=== PATIENT | female | born 1965 | race Caucasian/White ===

== ENCOUNTER 2018-05-26 09:45 | Inpatient (IN) | payer MEDICAID ==
[2018-05-26] MEDS ORDERED: SODIUM CHLORIDE 0.9% 1,000 ML IV ONE (10:14)
[2018-05-26 10:28] LABS: BILIRUBIN,URINE NEGATIVE (NEGATIVE); GLUCOSE, URINE (UA) NEGATIVE (NEGATIVE); KETONES,URINE (UA) NEGATIVE (NEGATIVE); LEUKOCYTE ESTERASE, URINE NEGATIVE (NEGATIVE); NITRITE,URINE NEGATIVE (NEGATIVE); OCCULT BLOOD,URINE NEGATIVE (NEGATIVE); PH,URINE 7.5 PH (5.0-7.5); PROTEIN,URINE NEGATIVE (NEGATIVE); UROBILINOGEN,URINE 0.2 (NORMAL) E.U./dL (NORMAL)
[2018-05-26 10:28] LABS: BASOPHILS # (AUTO) 0.1 10^3/uL (0.0-0.1); BASOPHILS % (AUTO) 0.4 %; EOSINOPHILS % (AUTO) 0.1 %; HGB - HEMOGLOBIN 14.3 g/dL (12.0-16.0); LYMPHOCYTES # (AUTO) 1.7 10^3/uL (1.5-3.5); LYMPHOCYTES % (AUTO) 10.1 %; MEAN CORPUSCULAR HEMOGLOBIN 31.3 pg (27.0-31.0); MEAN CORPUSCULAR HGB CONC 33.7 g/dL (32.0-36.0); MEAN CORPUSCULAR VOLUME 92.8 fL (81.0-99.0); MEAN PLATELET VOLUME 8.1 fL (7.9-10.8); MONOCYTES # (AUTO) 0.9 10^3/uL (0.0-1.0); MONOCYTES % (AUTO) 5.7 %; NEUTROPHILS # (AUTO) 13.8 10^3/uL (1.5-6.6); NEUTROPHILS % (AUTO) 83.7 %; PLT - PLATELET COUNT 309 10^3/uL (130-450); RED BLOOD COUNT 4.56 10^6/uL (4.20-5.40); RED CELL DISTRIBUTION WIDTH 13.7 % (12.0-15.0); WHITE BLOOD COUNT 16.5 x10^3/uL (4.8-10.8)
[2018-05-26 10:30] LABS: CLARITY,URINE SL. CLOUDY (CLEAR)
[2018-05-26] MEDS ORDERED: ONDANSETRON 4 MG/2 ML VIAL IVP STA ×2 (10:31→11:54)
[2018-05-26] MEDS ORDERED: MORPHINE 2 MG/ML SYRINGE IVP STA ×3 (10:31→15:29)
--- NOTE | 2018-05-26 10:34 | ED Physician Documentation ---
History of Present Illness - Stated complaint Stated Complaint: PX RT SIDE - Chief complaint Chief Complaint: Abd Pain - Additonal information Additional information: hx from pt 53 f healthy s/p appy ate chicken salad last night awoke this AM with severe ruq pain rad to chest abd and back sweats NVD (no blood) Review of Systems Constitutional: denies: Fever Cardiac: reports: Chest pain / pressure (rad from abd) Respiratory: denies: Dyspnea GI: reports: Abdominal Pain, Nausea, Vomiting, Diarrhea Musculoskeletal: reports: Back pain (rad from abd) Immunocompromised: denies: Immunocompromised PD PAST MEDICAL HISTORY - Present Medications Home Medications: Ambulatory Orders Medication Instructions Recorded Confirmed Buspirone HCl 05/26/18 Methylphenidate HCl [Concerta] 05/26/18 Potassium Chloride [K-Dur] 05/26/18 Sertraline [Zoloft] 05/26/18 Topiramate [Topiramate ER] 05/26/18 hydroCHLOROthiazide 05/26/18 [Hydrochlorothiazide] tiZANidine [Zanaflex] 05/26/18 - Allergies Allergies/Adverse Reactions: Allergies Allergy/AdvReac Type Severity Reaction Status Date / Time ciprofloxacin [From Cipro] AdvReac Rash Verified 05/26/18 10:03 PD ED PE NORMAL - Vitals Vital signs reviewed: Yes - Cardiac Cardiac: RRR - Respiratory Respiratory: No respiratory distress, Clear bilaterally - Abdomen Abdomen: Soft, Other (severe TTP RUQ with guarding and rebound, no pulsatile mass appreciated) - Back Back: No CVA TTP - Derm Derm: Other (diaphoretic) - Neuro Neuro: Alert and oriented X 3 Results - Vitals Vitals: Vital Signs - 24 hr 05/26/18 05/26/18 09:59 11:16 Temperature 36.8 C 36.6 C Heart Rate 65 67 Respiratory 20 16 Rate Blood Pressure 128/83 H 127/80 O2 Saturation 98 100 Oxygen O2 Source Room air - Labs Labs: Laboratory Tests 05/26/18 05/26/18 05/26/18 10:00 10:21 10:35 WBC 16.5 H RBC 4.56 Hgb 14.3 Hct 42.4 MCV 92.8 MCH 31.3 H MCHC 33.7 RDW 13.7 Plt Count 309 MPV 8.1 Neut # (Auto) 13.8 H Lymph # (Auto) 1.7 [place] # (Auto) 0.9 Eos # (Auto) 0.0 Baso # (Auto) 0.1 Absolute Nucleated RBC 0.00 Nucleated RBC % 0.0 Sodium 137 Potassium 3.7 Chloride 105 Carbon Dioxide 21 Anion Gap 11.0 BUN 23 H Creatinine 0.9 Estimated GFR (MDRD) 66 L Glucose 178 H Calcium 9.3 Total Bilirubin 1.4 H AST 283 H ALT 83 H Alkaline Phosphatase 75 Troponin I Total Protein 7.7 Albumin 4.2 Globulin 3.5 Albumin/Globulin Ratio 1.2 Lipase 46 Serum HCG, Qual Urine Color YELLOW Urine Clarity SL. CLOUDY Urine pH 7.5 Ur Specific Pinch 1.010 Urine Protein NEGATIVE Urine Glucose (UA) NEGATIVE Urine Ketones NEGATIVE Urine Occult Blood NEGATIVE Urine Nitrite NEGATIVE Urine Bilirubin NEGATIVE Urine Urobilinogen 0.2 (NORMAL) Ur Leukocyte Esterase NEGATIVE Urine RBC 0-5 Urine WBC 0-3 Ur Squamous Epith Cells NONE SEEN Amorphous Sediment Moderate Urine Bacteria Moderate H Ur Microscopic Review INDICATED Urine Culture Comments INDICATED 05/26/18 05/26/18 10:35 10:35 WBC RBC Hgb Hct MCV MCH MCHC RDW Plt Count MPV Neut # (Auto) Lymph # (Auto) [place] # (Auto) Eos # (Auto) Baso # (Auto) Absolute Nucleated RBC Nucleated RBC % Sodium Potassium Chloride Carbon Dioxide Anion Gap BUN Creatinine Estimated GFR (MDRD) Glucose Calcium Total Bilirubin AST ALT Alkaline Phosphatase Troponin I < 0.04 Total Protein Albumin Globulin Albumin/Globulin Ratio Lipase Serum HCG, Qual NEGATIVE Urine Color Urine Clarity Urine pH Ur Specific Pinch Urine Protein Urine Glucose (UA) Urine Ketones Urine Occult Blood Urine Nitrite Urine Bilirubin Urine Urobilinogen Ur Leukocyte Esterase Urine RBC Urine WBC Ur Squamous Epith Cells Amorphous Sediment Urine Bacteria Ur Microscopic Review Urine Culture Comments PD MEDICAL DECISION MAKING - ED course ED course: sono = gallstones and + sono murphys, elev WBC and bili gave unasyn spoke to surgeon at 1340 - Sepsis Event Vital Signs: Vital Signs - 24 hr 05/26/18 05/26/18 09:59 11:16 Temperature 36.8 C 36.6 C Heart Rate 65 67 Respiratory 20 16 Rate Blood Pressure 128/83 H 127/80 O2 Saturation 98 100 Oxygen O2 Source Room air Departure - Departure Disposition: [facility] DC/Xfer Clinical Impression: Cholecystitis
[2018-05-26 10:40] LABS: RBC,URINE 0-5 /HPF (0-5); SQUAMOUS EPITHELIAL CELL,UR NONE SEEN (<= Few)
[2018-05-26 10:41] LABS: AMORPHOUS SEDIMENT,UR Moderate /LPF; BACTERIA,URINE Moderate /HPF (None Seen)
[2018-05-26 11:04] LABS: ALBUMIN 4.2 g/dL (3.2-5.5); ALBUMIN/GLOBULIN RATIO 1.2 (1.0-2.2); BILIRUBIN,TOTAL 1.4 mg/dL (0.2-1.0); CALCIUM 9.3 mg/dL (8.5-10.3); CREATININE 0.9 mg/dL (0.4-1.0); TOTAL PROTEIN 7.7 g/dL (6.7-8.2)
[2018-05-26 11:15] LABS: HCG,QUALITATIVE BLOOD NEGATIVE
[2018-05-26] MEDS ORDERED: AMPICILLIN/SULBACTAM 3 GM in SODIUM CHLORIDE 0.9% MINIBAG 100 ML IV STA (12:51)
--- NOTE | 2018-05-26 13:04 | Ultrasound Report ---
Reason: ruq pain Procedure Date: 05/26/2018 Accession Number: [id number] / [id number] Procedure: US - Abdomen Limited CPT Code: FULL RESULT: EXAM: ABDOMEN ULTRASOUND LIMITED, RUQ EXAM DATE: 05/26/2018 12:44 PM. CLINICAL HISTORY: Right upper quadrant pain. Nausea and vomiting. COMPARISON: None. TECHNIQUE: Real-time scanning was performed with static images obtained. FINDINGS: Liver: Normal in size and echotexture. Liver measures 15.3 cm. Main portal vein flow: Hepatopetal. Gallbladder: Multiple small mobile gallstones are seen in the gallbladder. There is no gallbladder wall thickening or pericholecystic fluid. Sonographic Shepherd sign is positive. Biliary System: CBD measures 5 mm. No intrahepatic or extrahepatic ductal dilatation. Other: None. IMPRESSION: Cholelithiasis and positive sonographic Shepherd sign, however, no wall thickening or pericholecystic fluid to suggest acute cholecystitis. If there is high suspicion for underlying cholecystitis further evaluation with contrast-enhanced CT or hepatobiliary scan could be helpful. RADIA
--- NOTE | 2018-05-26 16:05 | HISTORY & PHYSICAL EXAMINATION ---
Chief Complaint - Chief Complaint Chief Complaint: RUQ abdominal pain Abdominal Pain HPI - Admitted From Admitted from: ED - History Obtained From History obtained from: Patient Exam limitations: No limitations - History of Present Illness Severity at the worst: Severe Pain Quality: Sharp, Throbbing Context-Pain started w/: Eating Timing: Intermittent HPI Comment/Other: 53y/o woman presented to the ED with c/o severe RUQ abdominal pain that started this am after eating. She has had similar pain off and on in the past, but ignored it and it went away. It has never been as severe as today. Her WBC was elevated at 16.5 and RUQ u/s confirmed gallstones, although T bili is elevated at 1.4 no biliary dilation was seen on u/s. PMH/PSH - Past Medical History Cardiovascular: positive: Hypertension Neuro: positive: Migraines Psych: positive: Depression MRSA Hx?: No - Past Surgical History General: positive: Appendectomy (at age 11) Ortho: positive: Knee replacement /[employer]: positive: Hysterectomy Social & Family Hx - Living Situation Living Arrangement: At home (fully functional and independent) - Social History Does the pt smoke?: No Smoking Status: Never smoker Meds/Allgy - Home Medications Home Medications: Ambulatory Orders Medication Instructions Recorded Confirmed Buspirone HCl 30 mg PO BID 05/26/18 05/26/18 Cholestyramine/Aspartame 4 gm PO QID 05/26/18 05/26/18 [Cholestyramine Light Packet] Diclofenac Sodium 4 g TOP QID PRN 05/26/18 05/26/18 Estradiol [Estradiol] 2 mg PO DAILY 05/26/18 05/26/18 Methylphenidate HCl [Concerta] 36 mg PO DAILY 05/26/18 05/26/18 Metoclopramide [Reglan] 10 mg PO Q6H PRN 05/26/18 05/26/18 Nortriptyline HCl 10 - 20 mg PO QPM PRN 05/26/18 05/26/18 Pantoprazole Sodium 40 mg PO DAILY 05/26/18 05/26/18 Potassium Chloride [K-Dur] 20 meq PO DAILY 05/26/18 05/26/18 SUMAtriptan succinate [Sumatriptan 100 mg PO Q2H PRN MDD 200MG/24HRS 05/26/18 Succinate] Sertraline [Zoloft] 100 mg PO DAILY 05/26/18 05/26/18 Topiramate [Topiramate ER] 200 mg PO DAILY 05/26/18 05/26/18 hydroCHLOROthiazide 25 mg PO DAILY 05/26/18 05/26/18 [Hydrochlorothiazide] tiZANidine [Zanaflex] 4 mg PO Q8H 05/26/18 05/26/18 - Allergies Allergies/Adverse Reactions: Allergies Allergy/AdvReac Type Severity Reaction Status Date / Time ciprofloxacin [From Cipro] AdvReac Rash Verified 05/26/18 10:03 Review of Systems - Constitutional Constitutional: reports: Poor appetite - Gastrointestinal Gastrointestinal: reports: Abdominal pain (RUQ) - Neurological Neurological: reports: Headache - All Other Systems All Other Systems: reports: Reviewed and negative Exam - Vital Signs Reviewed Vital Signs: Yes - Physical Exam General Appearance: positive: No acute distress, Alert Eyes Bilateral: positive: EOMI, No scleral icterus Neck: positive: No JVD, Trachea midline Respiratory: positive: No respiratory distress, Breath sounds nml Cardiovascular: positive: Regular rate & rhythm Peripheral Pulses: positive: 2+ Abdomen: positive: Nml bowel sounds, No distention, Tenderness (RUQ; mod), Guarding (voluntary). negative: Rebound Skin: positive: Warm, Dry Extremities: positive: Full ROM, Nml appearance Neurologic/Psychiatric: positive: Oriented x3, Other (no focal deficits) Results - Lab Results Lab results reviewed: Yes Fish Bones: 05/26/18 10:21 05/26/18 10:35 Other Lab Results: T bili 1.4 - Diagnostic Imaging Results Diagnostic Imaging Results: positive: Final report reviewed (u/s shows gallstones, no GB wall thickening, no pericholecystitic fluid, no biliary dilation) Impression/Plan - Problem List Problem List: Acute cholecystitis: Will admit for IV antibiotics. Repeat bilirubin in am and if increasing, she may need MRCP/ERCP; if not then will proceed with lap sky.
[2018-05-26] MEDS: SODIUM CHLORIDE FLUSH 0.9% 10 ML SYRINGE IVP SCH (16:37)
[2018-05-26] MEDS: PIPERACILLIN/TAZOBACTAM 3.375 GM in SODIUM CHLORIDE 0.9% MINIBAG 100 ML IV SCH ×2 (16:37→20:37)
[2018-05-26] MEDS: MORPHINE 2 MG/ML SYRINGE IVP PRN ×3 (16:38→22:33)
[2018-05-26] MEDS: D5.45NS W/20 MEQ KCL 1,000 ML IV SCH (16:38)
[2018-05-26] MEDS: ACETAMINOPHEN 325 MG TABLET PO PRN (17:17)
[2018-05-26] MEDS: SODIUM CHLORIDE FLUSH 0.9% 10 ML SYRINGE IVP PRN ×3 (17:24→22:34)
[2018-05-26] MEDS: ONDANSETRON 4 MG/2 ML VIAL IVP PRN (17:24)
[2018-05-26] MEDS ORDERED: SUMAtriptan 25 MG TABLET PO ONE (18:34)
[2018-05-26] MEDS ORDERED: DICLOFENAC SODIUM 4 GM TOP PRN (20:18)
[2018-05-26] MEDS ORDERED: NORTRIPTYLINE 10 MG CAPSULE PO PRN (20:18)
[2018-05-26] MEDS: busPIRone 5 MG TABLET PO SCH (21:54)
[2018-05-27] MEDS: MORPHINE 2 MG/ML SYRINGE IVP PRN ×7 (00:33→16:45)
[2018-05-27] MEDS: SODIUM CHLORIDE FLUSH 0.9% 10 ML SYRINGE IVP PRN ×2 (00:33→02:34)
[2018-05-27] MEDS: SODIUM CHLORIDE FLUSH 0.9% 10 ML SYRINGE IVP SCH ×4 (00:33→18:22)
[2018-05-27] MEDS: ONDANSETRON 4 MG/2 ML VIAL IVP PRN ×3 (00:33→21:54)
[2018-05-27] MEDS: PIPERACILLIN/TAZOBACTAM 3.375 GM in SODIUM CHLORIDE 0.9% MINIBAG 100 ML IV SCH ×4 (02:39→20:52)
[2018-05-27] MEDS: D5.45NS W/20 MEQ KCL 1,000 ML IV SCH ×3 (04:16→16:46)
[2018-05-27 07:04] LABS: BASOPHILS # (AUTO) 0.1 10^3/uL (0.0-0.1); BASOPHILS % (AUTO) 0.6 %; EOSINOPHILS # (AUTO) 0.1 10^3/uL (0.0-0.7); EOSINOPHILS % (AUTO) 1.2 %; HGB - HEMOGLOBIN 13.2 g/dL (12.0-16.0); LYMPHOCYTES # (AUTO) 3.5 10^3/uL (1.5-3.5); LYMPHOCYTES % (AUTO) 34.4 %; MEAN CORPUSCULAR HEMOGLOBIN 31.6 pg (27.0-31.0); MEAN CORPUSCULAR HGB CONC 33.2 g/dL (32.0-36.0); MEAN CORPUSCULAR VOLUME 95.4 fL (81.0-99.0); MEAN PLATELET VOLUME 7.9 fL (7.9-10.8); MONOCYTES # (AUTO) 0.8 10^3/uL (0.0-1.0); MONOCYTES % (AUTO) 7.8 %; NEUTROPHILS # (AUTO) 5.8 10^3/uL (1.5-6.6); PLT - PLATELET COUNT 270 10^3/uL (130-450); RED BLOOD COUNT 4.17 10^6/uL (4.20-5.40); RED CELL DISTRIBUTION WIDTH 14.1 % (12.0-15.0); WHITE BLOOD COUNT 10.3 x10^3/uL (4.8-10.8)
[2018-05-27 07:19] LABS: ALBUMIN 3.4 g/dL (3.2-5.5); ALBUMIN/GLOBULIN RATIO 1.1 (1.0-2.2); BILIRUBIN,TOTAL 0.9 mg/dL (0.2-1.0); CALCIUM 8.2 mg/dL (8.5-10.3); CREATININE 0.9 mg/dL (0.4-1.0); TOTAL PROTEIN 6.6 g/dL (6.7-8.2)
--- NOTE | 2018-05-27 08:29 | ANESTHESIA ---
Pre-Anesthesia VS, & Labs - Diagnosis Cholelithiasis - Procedure Lap cholecystectomy Vital Signs: Temp Pulse Resp BP Pulse Ox 37.1 C 65 18 112/76 95 05/27/18 07:31 05/27/18 07:31 05/27/18 07:31 05/27/18 07:31 05/27/18 07:31 Height 5 ft 7 in Weight (kg) 77.5 kg Body Mass Index 26.7 - NPO >8 hours - Is Patient ?: No - Lab Results Fish Bones: 05/27/18 06:50 05/27/18 06:50 Home Medications and Allergies Home Medications: Ambulatory Orders Medication Instructions Recorded Confirmed Buspirone HCl 30 mg PO BID 05/26/18 05/26/18 Cholestyramine/Aspartame 4 gm PO QID 05/26/18 05/26/18 [Cholestyramine Light Packet] Diclofenac Sodium 4 g TOP QID PRN 05/26/18 05/26/18 Estradiol [Estradiol] 2 mg PO DAILY 05/26/18 05/26/18 Methylphenidate HCl [Concerta] 36 mg PO DAILY 05/26/18 05/26/18 Metoclopramide [Reglan] 10 mg PO Q6H PRN 05/26/18 05/26/18 Nortriptyline HCl 10 - 20 mg PO QPM PRN 05/26/18 05/26/18 Pantoprazole Sodium 40 mg PO DAILY 05/26/18 05/26/18 Potassium Chloride [K-Dur] 20 meq PO DAILY 05/26/18 05/26/18 SUMAtriptan succinate [Sumatriptan 100 mg PO Q2H PRN MDD 200MG/24HRS 05/26/18 Succinate] Sertraline [Zoloft] 100 mg PO DAILY 05/26/18 05/26/18 Topiramate [Topiramate ER] 200 mg PO DAILY 05/26/18 05/26/18 hydroCHLOROthiazide 25 mg PO DAILY 05/26/18 05/26/18 [Hydrochlorothiazide] tiZANidine [Zanaflex] 4 mg PO Q8H 05/26/18 05/26/18 Allergies/Adverse Reactions: Allergies Allergy/AdvReac Type Severity Reaction Status Date / Time ciprofloxacin [From Cipro] AdvReac Rash Verified 08/28/18 10:03 Anes History & Medical History - Anesthetic History Anesthesia Complications: reports: No previous complications Family history of Anesthesia Complications: Denies Family history of Malignant Hyperthermia: Denies - Medical History Cardiovascular: reports: Hypertension Pulmonary: reports: None Gastrointestinal: reports: GERD Urinary: reports: None Neuro: reports: Migraines, Other (anxiety) Musculoskeletal: reports: Osteoarthritis, Chronic back pain Endocrine/Autoimmune: reports: None Blood Disorders: reports: None Skin: reports: None Smoking Status: Never smoker Psychosocial: reports: Anxiety - Surgical History General: Appendectomy (at age 11) Urologic: Bladder surgery Gynecologic: Hysterectomy Orthopedic: Arthroscopic surgery Dermatologic: Skin cancer surgery Exam General: Alert Dental: WNL Mouth Openin Fingerbreadth Neck Mobility: Normal Mallampati classification: II Thyromental Distance: greater than 6 cm Respiratory: Lungs clear Cardiovascular: Regular rate, No murmurs Mental/Cognitive Status: Alert/Oriented X3 Cognitive Status: Within normal limits Plan Anesthesia Type: General Consent for Procedure(s) Verified and Reviewed: Yes Code Status: Attempt Resuscitation ASA classification: 2-Mild systemic disease Is this case an emergency?: No
[2018-05-27] MEDS ORDERED: hydroCHLOROthiazide 25 MG TABLET PO SCH ×2 (09:00)
[2018-05-27] MEDS ORDERED: POTASSIUM CHLORIDE 20 MEQ TABLET PO SCH (09:00)
[2018-05-27] MEDS ORDERED: PANTOPRAZOLE 40 MG TABLET PO SCH (09:00)
[2018-05-27] MEDS: PANTOPRAZOLE 40 MG TABLET PO SCH (09:09)
[2018-05-27] MEDS: TOPIRAMATE 200 MG PO SCH (09:10)
[2018-05-27] MEDS: ESTRADIOL 1 MG TABLET PO SCH (09:10)
[2018-05-27] MEDS: busPIRone 5 MG TABLET PO SCH ×2 (09:10→20:45)
[2018-05-27] MEDS: PATIENT OWN CONTROLLED 1 EACH PO SCH (09:10)
[2018-05-27] MEDS ORDERED: BUPIVACAINE 0.5%-EPI 1:200000 PF 30 ML VIAL ONE (13:18)
[2018-05-27] MEDS ORDERED: LACTATED RINGERS 1,000 ML IV ONE ×2 (13:20→14:47)
[2018-05-27] MEDS ORDERED: BUPIVACAINE 0.5%-EPI 1:200000 PF 30 ML VIAL SUBQ ONE (13:51)
[2018-05-27] MEDS ORDERED: SODIUM CHLORIDE FLUSH 0.9% 10 ML SYRINGE IVP PRN (14:47)
[2018-05-27] MEDS ORDERED: LIDOCAINE-MPF 2% 5 ML VIAL IM ONE (14:51)
[2018-05-27] MEDS ORDERED: ONDANSETRON 4 MG/2 ML VIAL IVP ONE (14:51)
[2018-05-27] MEDS ORDERED: ROCURONIUM 50 MG/5 ML VIAL IVP ONE (14:51)
[2018-05-27] MEDS ORDERED: PROPOFOL 200 MG/20 ML VIAL IVP ONE (14:51)
[2018-05-27] MEDS ORDERED: KETOROLAC 30 MG/ML VIAL IVP ONE (14:51)
[2018-05-27] MEDS ORDERED: ONDANSETRON 4 MG/2 ML VIAL ONE (14:55)
--- NOTE | 2018-05-27 14:58 | OPERATIVE REPORT ---
Operative Report - General Admit Date: 05/26/18 Planned Procedure: lap sky Pre-Op Diagnosis: Acute cholecystitis Procedure Performed: Laparoscopic Cholecystectomy Post Op Diagnosis: same - Procedure Note Primary Surgeon: Briseyda Weir MD Anesthesia Provider: Dr. Alexander Anesthesia Technique: General ET tube Pathology: gallbladder Estimated Blood Loss (mL): 10 Complications: NONE - Other Other Information/Narrative: After informed consent was obtained, the pt was taken to the OR and placed in supine position. A time-out was done and the abdomen was prepped and draped in sterile fashion. 0.25% Marcaine with epi was injected into the infraumbilical skin and subQ tissues and an infraumbilical incision was made and carried down to the fascia with cautery and blunt dissection. The fascia was grasped between 2 faraz clamps, incised and the peritoneal cavity entered. A 0 Vicryl suture was placed on either side of the fascia. The Cole trocar was placed and secured with the Vicryl sutures. The abdomen was insufflated and a 5mm epigastric trocar along with 2 5mm RUQ trocars were placed under direct visualization after injection of local anesthetic. The gallbladder was quite large and dilated and was grasped and aspirated with the needle aspirator removing 80ml of bile so that it could be retracted over the liver. Once the liver was retracted, adhesions were noted from the omentum and bowel to the anterior gallbladder wall. These adhesions were carefully taken down. The neck of the gallbladder was then grasped and retracted. The cystic duct and cystic artery were then carefully dissected free until the critical view was obtained. The cystic duct and cystic artery were doubly clipped proximally and distally then transected with the scissors. The gallbladder was then dissected off the liver bed with electrocautery. It was placed in the endocatch bag and removed from the abdomen via the umbilical trocar site. There was some bile that leaked out of the initial aspiration needle hole, so the abdomen was copiously irrigated and suctioned with 2L of saline until the irrigant returned clear. The trocars were then removed under direct visualization. The fascia at the umbilical trocar site was closed with a [id number] 0 Vicryl suture. The skin at all the trocar sites was closed with a running 4-0 Vicryl suture. Dermabond was applied. All counts were correct at the end of the procedure. The pt tolerated the procedure well and was sent to the PACU in stable condition.
[2018-05-27] MEDS: fentaNYL 100 MCG/2 ML VIAL ONE ×4 (15:06→15:38)
[2018-05-27] MEDS ORDERED: SCOPOLAMINE PATCH TOP ONE (15:20)
[2018-05-27] MEDS ORDERED: HYDROmorphone 1 MG/ML CARPUJECT ONE (15:43)
[2018-05-27] MEDS ORDERED: METOCLOPRAMIDE 10 MG TABLET PO PRN (16:30)
[2018-05-27] MEDS ORDERED: SUMAtriptan 25 MG TABLET PO PRN (16:35)
[2018-05-27] MEDS: KETOROLAC 15 MG/ML VIAL IVP PRN (18:19)
[2018-05-27] MEDS: MORPHINE 2 MG/ML CARPUJECT IVP PRN ×2 (20:19→22:35)
[2018-05-27] MEDS: tiZANidine 4 MG TABLET PO SCH (20:45)
[2018-05-28] MEDS: KETOROLAC 15 MG/ML VIAL IVP PRN ×4 (00:21→19:44)
[2018-05-28] MEDS: tiZANidine 4 MG TABLET PO SCH ×4 (00:22→23:40)
[2018-05-28] MEDS: SODIUM CHLORIDE FLUSH 0.9% 10 ML SYRINGE IVP SCH ×6 (01:30→17:03)
[2018-05-28] MEDS: D5.45NS W/20 MEQ KCL 1,000 ML IV SCH (02:41)
[2018-05-28] MEDS: PIPERACILLIN/TAZOBACTAM 3.375 GM in SODIUM CHLORIDE 0.9% MINIBAG 100 ML IV SCH (02:44)
[2018-05-28] MEDS: PANTOPRAZOLE 40 MG TABLET PO SCH ×3 (05:58→20:51)
[2018-05-28 05:59] LABS: HGB - HEMOGLOBIN 10.9 g/dL (12.0-16.0); MEAN CORPUSCULAR HEMOGLOBIN 32.2 pg (27.0-31.0); MEAN CORPUSCULAR HGB CONC 33.9 g/dL (32.0-36.0); MEAN CORPUSCULAR VOLUME 94.9 fL (81.0-99.0); MEAN PLATELET VOLUME 7.8 fL (7.9-10.8); RED BLOOD COUNT 3.38 10^6/uL (4.20-5.40); WHITE BLOOD COUNT 10.6 x10^3/uL (4.8-10.8)
[2018-05-28 06:19] LABS: ALBUMIN 2.7 g/dL (3.2-5.5); CALCIUM 7.7 mg/dL (8.5-10.3); CREATININE 0.8 mg/dL (0.4-1.0); TOTAL PROTEIN 5.3 g/dL (6.7-8.2)
[2018-05-28] MEDS ORDERED: SODIUM CHLORIDE 0.9% 1,000 ML IV ONE ×2 (06:52→06:54)
[2018-05-28] MEDS ORDERED: hydroCHLOROthiazide 25 MG TABLET PO SCH (07:23)
[2018-05-28] MEDS: TOPIRAMATE 200 MG PO SCH (08:49)
[2018-05-28] MEDS: POTASSIUM CHLORIDE 20 MEQ TABLET PO SCH (08:49)
[2018-05-28] MEDS: PATIENT OWN CONTROLLED 1 EACH PO SCH (08:49)
[2018-05-28] MEDS: SERTRALINE 50 MG TABLET PO SCH (08:50)
[2018-05-28] MEDS: busPIRone 5 MG TABLET PO SCH ×2 (08:50→20:51)
[2018-05-28] MEDS: ESTRADIOL 1 MG TABLET PO SCH (08:54)
--- NOTE | 2018-05-28 10:36 | PROVIDER PROGRESS NOTE ---
Subjective - General Admit Date: 05/27/18 Procedure Date: 05/27/18 Post Op Days: 1 Procedure Performed: lap sky - Review of Systems Wound/Incisions: positive: Healing well, No drainage General: positive: Weakness Cardiovascular: positive: Lightheadedness Gastrointestinal: positive: Abdominal pain (incisional) All Other Systems: positive: Reviewed and negative Objective - Patient Data Reviewed Vital Signs: Yes Vital Signs: Vital Signs x48h Temp Pulse Resp BP Pulse Ox 05/28/18 09:45 59 L 101/69 05/28/18 08:47 69 92/56 L 05/28/18 08:00 37.1 C 59 L 18 91/59 L 97 05/28/18 06:36 57 L 89/55 L 05/28/18 06:06 36.8 C 50 L 16 87/56 L 96 Intake & Output: Intake and Output Totals x24h 05/26/18 05/27/18 05/28/18 23:59 23:59 23:59 Intake Total 200 2696.667 Balance 200 2696.667 - Lab Results Lab Results: 05/28/18 05:45 05/28/18 05:45 Other Lab Results: Lab Results x24hrs 05/28/18 05/28/18 Range/Units 05:45 05:45 WBC 10.6 (4.8-10.8) x10^3/uL RBC 3.38 L (4.20-5.40) 10^6/uL Hgb 10.9 L (12.0-16.0) g/dL Hct 32.1 L (37.0-47.0) % MCV 94.9 (81.0-99.0) fL MCH 32.2 H (27.0-31.0) pg MCHC 33.9 (32.0-36.0) g/dL RDW 14.0 (12.0-15.0) % Plt Count 208 (130-450) 10^3/uL MPV 7.8 L (7.9-10.8) fL Sodium 138 (135-145) mmol/L Potassium 3.6 (3.5-5.0) mmol/L Chloride 110 (101-111) mmol/L Carbon Dioxide 24 (21-32) mmol/L Anion Gap 4.0 L (6-13) BUN 7 (6-20) mg/dL Creatinine 0.8 (0.4-1.0) mg/dL Estimated GFR (MDRD) 75 L (>89) Glucose 115 H (70-100) mg/dL Calcium 7.7 L (8.5-10.3) mg/dL Total Bilirubin 1.0 (0.2-1.0) mg/dL AST 54 H (10-42) IU/L ALT 50 (10-60) IU/L Alkaline Phosphatase 49 (42-121) IU/L Total Protein 5.3 L (6.7-8.2) g/dL Albumin 2.7 L (3.2-5.5) g/dL Globulin 2.6 (2.1-4.2) g/dL Albumin/Globulin Ratio 1.0 (1.0-2.2) - Current Medications Current Medications: Current Medications Generic Name Dose Route Start Last Admin Trade Name Freq PRN Reason Stop Dose Admin Acetaminophen 650 mg 05/26/18 14:56 05/26/18 17:17 Tylenol PO 650 mg Q4HR PRN Administration Pain 1 to 4 Buspirone HCl 30 mg 05/26/18 21:00 05/28/18 08:50 Buspar PO 30 mg BID RUSSELL Administration Estradiol 2 mg 05/27/18 09:00 05/28/18 08:54 Estrace PO 2 mg DAILY RUSSELL Administration Hydrochlorothiazide 25 mg 05/28/18 07:23 05/28/18 08:49 Hydrodiuril PO Not Given DAILY RUSSELL Potassium Chloride/Dextrose/Sod Cl 1,000 mls @ 100 mls/hr 05/26/18 15:00 09:47 D5.45ns W/20 Meq Kcl IV 125 mls/hr .Q10H RUSSELL Infusion Ketorolac Tromethamine 15 mg 05/27/18 14:47 05/28/18 05:56 Toradol Inj (15mg) IVP 06/01/18 14:46 15 mg Q6H PRN Administration PAIN Morphine Sulfate 2 mg 05/27/18 17:34 05/27/18 22:35 Morphine (Carpuject) IVP 2 mg Q2H PRN Administration Pain 8 to 10 Nortriptyline HCl 20 mg 05/26/18 20:18 05/26/18 21:53 Pamelor PO 20 mg QPM PRN Administration Insomnia Ondansetron HCl 4 mg 05/26/18 14:56 05/27/18 21:54 Zofran Inj IVP 4 mg Q6HR PRN Administration Nausea / Vomiting Pantoprazole Sodium 40 mg 05/27/18 08:00 05/28/18 05:58 Protonix PO 40 mg QDAC RUSSELL Administration Patient Own Medication 1 each 05/27/18 09:00 05/28/18 08:49 Patient Own Controlled PO Not Given DAILY RUSSELL Topiramate [ 1 each 05/27/18 09:00 05/28/18 08:49 Topiramate Er] 200 PO Not Given Mg DAILY RUSSELL Potassium Chloride 20 meq 05/28/18 07:24 05/28/18 08:49 K-Dur PO Not Given DAILY RUSSELL Sertraline HCl 100 mg 05/28/18 09:00 05/28/18 08:50 Zoloft PO 100 mg DAILY RUSSELL Administration Sodium Chloride 10 ml 05/26/18 14:56 05/27/18 02:34 Normal Saline Flush 0.9% IVP 10 ml PRN PRN Administration NEEDED PER PROVIDER ORDERS Sodium Chloride 10 ml 05/26/18 17:00 05/28/18 08:55 Normal Saline Flush 0.9% IVP Not Given 0100,0900,1700 RUSSELL Sodium Chloride 10 ml 05/27/18 17:00 05/28/18 08:55 Normal Saline Flush 0.9% IVP Not Given 0100,0900,1700 RUSSELL Tizanidine HCl 4 mg 05/27/18 17:00 05/28/18 08:50 Zanaflex PO 4 mg Q8H RUSSELL Administration - Physical Exam Wound/Incisions: positive: Healing well, No drainage. negative: Erythema General Appearance: positive: No acute distress, Alert Respiratory: positive: No respiratory distress, Breath sounds nml Cardiovascular: positive: Bradycardia Abdomen: positive: Nml bowel sounds, No distention, Tenderness (appropriate incisional tenderness), Other (soft; incision dry and intact) Impression/Plan - Problem List Problem List: Acute cholecystitis: s/p lap sky 05/27. Pt has had hypotension with SBP in 80's. Treating as volume depletion/blood loss with fluid bolus, but pt is bradycardic not tachycardic and hgb is 10.9, so will ask hospitalist to see to ensure that something else is not going on. From the infection standpoint, wbc has normalized and will stop the Zosyn. T bili returned to and remains normal.
--- NOTE | 2018-05-28 11:26 | CONSULTATION NOTE ---
Referring Provider Name of Referring Provider:: Dr. 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 The patient presented to the ED with profound RUQ abdominal pain that started this AM shortly after eating. She has chronic nausea with abdominal discomfort nearly everyday, so at first, she tried to let it run its course. This pain continued, so she came to the ED. Once in the ED she was found to have an elevated WBC count of 16.5, an elevated bilirubin at 1.4, AST/ALT of 283/83, an elevated glucose of 178, an elevated BUN of 23, negative troponin, and a reduced GFR at 66. Imaging showed gallstones without biliary dilatation. The patient underwent a lap sky with Dr. Acuna without complications. Today, the patient is found to be hypotensive with bradycardia, so a Hospitalist consult was made. Thank you for this consult. History - Past Medical History Cardiovascular: reports: Hypertension, Murmur (during ) Respiratory: reports: None Neuro: reports: Migraines, Fainting (x1 in 2006, unknwon etiology) Endocrine/Autoimmune: reports: None GI: reports: GERD, Chronic diarrhea [employer]ING [employer]OR: reports: Other (HPV-cervical CA, now status post cervical removal, hysterectomy, one ovary removed.) : reports: Incontinence (2 bladder surgeries.), Chronic bladder infection, Nocturia, Frequency Psych: reports: Depression, Post traumatic stress disorder Musculoskeletal: reports: Chronic back pain Derm: reports: None MRSA Hx?: No - Past Surgical History General: reports: Appendectomy (at age 11), Colonoscopy, EGD ([facility] [place]) Ortho: reports: Knee replacement, 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 Both with CHF. Her mother resides in a assisted and also has COPD and DM. She has a sister with at least 6 mycardial infarctions, DM and now on hemodialysis. She has another sister who is alive and well with no illnesses. Living arrangement: At home (fully functional and independent) Living Situation: Alone Social History Notes: The patient is and lives in [place], [place]. She works on the [employer] and commutes. She has 2 grown children, a son and a daughter. She denies the use of tobacco, illicit drugs and admits to only occasional alcohol use. She wishes to be a FULL code. - Substance History Use: Uses substance without health or social issues: NONE Abuse: Recurrent use of substance despite neg consequences: NONE Dependence: Experiences withdrawal or developed tolerances: NONE - POLST Patient has POLST: No POLST Status: Full Code Meds/Allgy - Home Medications Home Medications: Ambulatory Orders Medication Instructions Recorded Confirmed Buspirone HCl 30 mg PO BID 05/26/18 05/26/18 Cholestyramine/Aspartame 4 gm PO QID 05/26/18 05/26/18 [Cholestyramine Light Packet] Diclofenac Sodium 4 g TOP QID PRN 05/26/18 05/26/18 Estradiol [Estradiol] 2 mg PO DAILY 05/26/18 05/26/18 Methylphenidate HCl [Concerta] 36 mg PO DAILY 05/26/18 05/26/18 Metoclopramide [Reglan] 10 mg PO Q6H PRN 05/26/18 05/26/18 Nortriptyline HCl 10 - 20 mg PO QPM PRN 05/26/18 05/26/18 Pantoprazole Sodium 40 mg PO DAILY 05/26/18 05/26/18 Potassium Chloride [K-Dur] 20 meq PO DAILY 05/26/18 05/26/18 SUMAtriptan succinate [Sumatriptan 100 mg PO Q2H PRN MDD 200MG/24HRS 05/26/18 Succinate] Sertraline [Zoloft] 100 mg PO DAILY 05/26/18 05/26/18 Topiramate [Topiramate ER] 200 mg PO DAILY 05/26/18 05/26/18 hydroCHLOROthiazide 25 mg PO DAILY 05/26/18 05/26/18 [Hydrochlorothiazide] tiZANidine [Zanaflex] 4 mg PO Q8H 05/26/18 05/26/18 - Allergies Allergies/Adverse Reactions: Allergies Allergy/AdvReac Type Severity Reaction Status Date / Time ciprofloxacin [From Cipro] AdvReac Rash Verified 05/26/18 10:03 Review of Systems - Constitutional Constitutional: reports: Fatigue, Poor appetite - Eyes Eyes: reports: Corrective lenses - Cardiovascular Cariovascular: reports: Edema (chronic BLE edema and is prescribed HTCZ), Lightheadedness - Gastrointestinal Gastrointestinal: reports: Abdominal pain, Abdominal distention, Diarrhea, Nausea, Vomiting, Reflux/heartburn, Bloating, Poor appetite - Genitourinary Genitourinary: reports: Dysuria, Incontinence, Other (chronic bladder infections ) - Musculoskeletal Musculoskeletal: reports: Back pain - Neurological Neurological: reports: Headache, Pre-existing deficit - Psychiatric Psychiatric: reports: Depression, Other (PTSD) - Hematologic/Lymphatic Hematologic/Lymphatic: reports: Recurrent infections (chronic UTI) - All Other Systems All Other Systems: reports: Reviewed and negative Exam - Vital Signs Reviewed Vital Signs: Yes Vital Signs: Vital Signs x48h Temp Pulse Resp BP Pulse Ox 05/28/18 09:45 59 L 101/69 05/28/18 08:47 69 92/56 L 05/28/18 08:00 37.1 C 59 L 18 91/59 L 97 05/28/18 06:36 57 L 89/55 L 05/28/18 06:06 36.8 C 50 L 16 87/56 L 96 - Physical Exam General Appearance: positive: No acute distress, Alert, Anxious Eyes Bilateral: positive: Normal inspection, PERRL ENT: positive: ENT inspection nml, Pharynx nml, No signs of dehydration Neck: positive: Nml inspection, Thyroid nml, No JVD, Trachea midline Respiratory: positive: Chest non-tender, No respiratory distress, Breath sounds nml Cardiovascular: positive: Regular rate & rhythm, No murmur, No gallop Peripheral Pulses: positive: 2+ Abdomen: positive: Tenderness, Guarding, Abnml bowel sounds, Other (post op sites are open to air, mild tenderness. No s/s of infection) Back: positive: Nml inspection Skin: positive: No rash, Warm, Dry Extremities: positive: Non-tender, Full ROM, Nml appearance Neurologic/Psychiatric: positive: Oriented x3, CN's nml (2-12), Motor nml, Sensation nml, Depressed mood/affect Reflexes: Bicep (R): 4+, Bicep (L): 4+, Ankle (R): 4+, Ankle (L): 4+ Conclusion/Plan - Diagnosis Diagnosis: Bradycardia, unspecified (R00.1). Hypotension, unspecified (I95.9). Type 2 diabetes mellitus without complications (E11.9). Acquired absence of other specified parts of digestive tract (Z90.49). Chronic migraine without aura, not intractable, without status migrainosus (G43.709). Essential (primary ) hypertension (I10) - Plan Plan: Telemetry Echocardiogram serial troponins labs Medication review symptom control New Diabetic teaching-I have informed the patient of her unfortunate new diagnosis. - Lab Results Lab results reviewed: Yes Fish Bones: 05/28/18 14:33 05/28/18 05:45 - Diagnostic Imaging Results Diagnostic Imaging Results: positive: Prelim report reviewed, Final report reviewed - EKG Results EKG Interpreted Independently: Yes EKG Comparison: No prior EKG
[2018-05-28] MEDS: MORPHINE 2 MG/ML CARPUJECT IVP PRN ×3 (12:47→20:58)
[2018-05-28] MEDS ORDERED: D5.45NS W/20 MEQ KCL 1,000 ML IV SCH (14:27)
[2018-05-28] MEDS: SODIUM CHLORIDE FLUSH 0.9% 10 ML SYRINGE IVP PRN ×2 (14:35→19:45)
[2018-05-28 15:00] LABS: BASOPHILS # (AUTO) 0.1 10^3/uL (0.0-0.1); BASOPHILS % (AUTO) 0.5 %; EOSINOPHILS # (AUTO) 0.2 10^3/uL (0.0-0.7); EOSINOPHILS % (AUTO) 1.6 %; LYMPHOCYTES % (AUTO) 29.7 %; MEAN CORPUSCULAR HEMOGLOBIN 32.1 pg (27.0-31.0); MEAN CORPUSCULAR HGB CONC 33.8 g/dL (32.0-36.0); MEAN PLATELET VOLUME 8.2 fL (7.9-10.8); MONOCYTES % (AUTO) 9.9 %; NEUTROPHILS # (AUTO) 5.9 10^3/uL (1.5-6.6); NEUTROPHILS % (AUTO) 58.3 %; PLT - PLATELET COUNT 225 10^3/uL (130-450); RED BLOOD COUNT 3.43 10^6/uL (4.20-5.40); RED CELL DISTRIBUTION WIDTH 13.9 % (12.0-15.0); WHITE BLOOD COUNT 10.2 x10^3/uL (4.8-10.8)
[2018-05-28 15:47] LABS: HB2 TOTAL 12.1 g/dL; HEMOGLOBIN A1C 0.8 g/dL; HEMOGLOBIN A1C % 8.2 % (4.6-6.2)
[2018-05-28] MEDS: ONDANSETRON 4 MG/2 ML VIAL IVP PRN ×2 (16:16→23:41)
[2018-05-28] MEDS: HYDROcod/ACETAM 5/325 MG TABLET PO PRN ×2 (17:53→23:40)
[2018-05-28] MEDS: NS W/20 MEQ KCL 1,000 ML IV SCH (19:44)
[2018-05-29] MEDS: SODIUM CHLORIDE FLUSH 0.9% 10 ML SYRINGE IVP SCH ×4 (01:04→07:57)
[2018-05-29] MEDS: NS W/20 MEQ KCL 1,000 ML IV SCH ×2 (02:59→10:40)
[2018-05-29] MEDS: KETOROLAC 15 MG/ML VIAL IVP PRN ×2 (04:28→10:37)
[2018-05-29 06:08] LABS: BASOPHILS # (AUTO) 0.1 10^3/uL (0.0-0.1); BASOPHILS % (AUTO) 0.8 %; EOSINOPHILS # (AUTO) 0.2 10^3/uL (0.0-0.7); EOSINOPHILS % (AUTO) 2.6 %; HGB - HEMOGLOBIN 10.5 g/dL (12.0-16.0); LYMPHOCYTES # (AUTO) 3.2 10^3/uL (1.5-3.5); LYMPHOCYTES % (AUTO) 37.6 %; MEAN CORPUSCULAR HEMOGLOBIN 32.2 pg (27.0-31.0); MEAN CORPUSCULAR HGB CONC 33.7 g/dL (32.0-36.0); MEAN CORPUSCULAR VOLUME 95.5 fL (81.0-99.0); MEAN PLATELET VOLUME 8.1 fL (7.9-10.8); MONOCYTES # (AUTO) 0.7 10^3/uL (0.0-1.0); MONOCYTES % (AUTO) 7.7 %; NEUTROPHILS # (AUTO) 4.4 10^3/uL (1.5-6.6); NEUTROPHILS % (AUTO) 51.3 %; PLT - PLATELET COUNT 201 10^3/uL (130-450); RED BLOOD COUNT 3.27 10^6/uL (4.20-5.40); RED CELL DISTRIBUTION WIDTH 13.8 % (12.0-15.0); WHITE BLOOD COUNT 8.6 x10^3/uL (4.8-10.8)
[2018-05-29 06:14] LABS: ALBUMIN 2.6 g/dL (3.2-5.5); BILIRUBIN,TOTAL 0.5 mg/dL (0.2-1.0); CALCIUM 7.5 mg/dL (8.5-10.3); CREATININE 0.8 mg/dL (0.4-1.0); TOTAL PROTEIN 5.3 g/dL (6.7-8.2)
[2018-05-29] MEDS: MORPHINE 2 MG/ML CARPUJECT IVP PRN ×2 (07:39→11:40)
[2018-05-29] MEDS: ONDANSETRON 4 MG/2 ML VIAL IVP PRN (09:20)
[2018-05-29] MEDS: ACETAMINOPHEN 325 MG TABLET PO PRN ×2 (09:23→14:53)
[2018-05-29] MEDS: busPIRone 5 MG TABLET PO SCH (09:23)
[2018-05-29] MEDS: HYDROcod/ACETAM 5/325 MG TABLET PO PRN ×2 (09:24→14:52)
[2018-05-29] MEDS: PANTOPRAZOLE 40 MG TABLET PO SCH (09:24)
[2018-05-29] MEDS: SERTRALINE 50 MG TABLET PO SCH (09:25)
[2018-05-29] MEDS: ESTRADIOL 1 MG TABLET PO SCH (09:25)
[2018-05-29] MEDS: tiZANidine 4 MG TABLET PO SCH (09:25)
[2018-05-29] MEDS: TOPIRAMATE 200 MG PO SCH (09:26)
[2018-05-29] MEDS: PATIENT OWN CONTROLLED 1 EACH PO SCH (09:26)
[2018-05-29] MEDS: POTASSIUM CHLORIDE 20 MEQ TABLET PO SCH (09:27)
--- NOTE | 2018-05-29 10:01 | PROVIDER PROGRESS NOTE ---
Subjective - General Admit Date: 05/27/18 Procedure Date: 05/27/18 Post Op Days: 2 Procedure Performed: lap sky - Review of Systems Wound/Incisions: positive: Healing well, No drainage. negative: Erythema General: positive: Weakness, Fatigue Cardiovascular: positive: Lightheadedness Gastrointestinal: positive: Abdominal pain (incisional; decreased from yesterday ) All Other Systems: positive: Reviewed and negative - Other Other Information/Narrative: Pt newly diagnosed with DM and a little concerned about this. Also concerned about the cardiac w/u for her bradycardia with hypotension. Objective - Patient Data Reviewed Vital Signs: Yes Vital Signs: Vital Signs x48h Temp Pulse Resp BP Pulse Ox 05/29/18 07:55 36.7 C 52 L 16 125/75 98 05/29/18 04:45 36.7 C 53 L 16 111/70 95 Intake & Output: Intake and Output Totals x24h 05/27/18 05/28/18 05/29/18 23:59 23:59 23:59 Intake Total 200 4613.497 906.25 Balance 200 4613.497 906.25 - Lab Results Lab Results: 05/29/18 05:40 05/29/18 05:40 Other Lab Results: Lab Results x24hrs 05/29/18 05/29/18 05/28/18 Range/Units 05:40 05:40 20:30 WBC 8.6 (4.8-10.8) x10^3/uL RBC 3.27 L (4.20-5.40) 10^6/uL Hgb 10.5 L (12.0-16.0) g/dL Hct 31.2 L (37.0-47.0) % MCV 95.5 (81.0-99.0) fL MCH 32.2 H (27.0-31.0) pg MCHC 33.7 (32.0-36.0) g/dL RDW 13.8 (12.0-15.0) % Plt Count 201 (130-450) 10^3/uL MPV 8.1 (7.9-10.8) fL Neut # (Auto) 4.4 (1.5-6.6) 10^3/uL Lymph # (Auto) 3.2 (1.5-3.5) 10^3/uL [place] # (Auto) 0.7 (0.0-1.0) 10^3/uL Eos # (Auto) 0.2 (0.0-0.7) 10^3/uL Baso # (Auto) 0.1 (0.0-0.1) 10^3/uL Absolute Nucleated RBC 0.01 x10^3/uL Nucleated RBC % 0.1 /100WBC Sodium 139 (135-145) mmol/L Potassium 3.8 (3.5-5.0) mmol/L Chloride 114 H (101-111) mmol/L Carbon Dioxide 21 (21-32) mmol/L Anion Gap 4.0 L (6-13) BUN 10 (6-20) mg/dL Creatinine 0.8 (0.4-1.0) mg/dL Estimated GFR (MDRD) 75 L (>89) Glucose 99 (70-100) mg/dL Glycated Hemoglobin (4.6-6.2) % Estim Average Glucose (70-100) Calcium 7.5 L (8.5-10.3) mg/dL Magnesium (1.7-2.8) mg/dL Total Bilirubin 0.5 (0.2-1.0) mg/dL AST 29 (10-42) IU/L ALT 36 (10-60) IU/L Alkaline Phosphatase 47 (42-121) IU/L Troponin I < 0.04 (<0.49) ng/mL B-Natriuretic Peptide (5-100) pg/mL Total Protein 5.3 L (6.7-8.2) g/dL Albumin 2.6 L (3.2-5.5) g/dL Globulin 2.7 (2.1-4.2) g/dL Albumin/Globulin Ratio 1.0 (1.0-2.2) TSH (0.34-5.60) uIU/mL 05/28/18 05/28/18 05/28/18 Range/Units 14:33 14:33 14:33 WBC (4.8-10.8) x10^3/uL RBC (4.20-5.40) 10^6/uL Hgb (12.0-16.0) g/dL Hct (37.0-47.0) % MCV (81.0-99.0) fL MCH (27.0-31.0) pg MCHC (32.0-36.0) g/dL RDW (12.0-15.0) % Plt Count (130-450) 10^3/uL MPV (7.9-10.8) fL Neut # (Auto) (1.5-6.6) 10^3/uL Lymph # (Auto) (1.5-3.5) 10^3/uL [place] # (Auto) (0.0-1.0) 10^3/uL Eos # (Auto) (0.0-0.7) 10^3/uL Baso # (Auto) (0.0-0.1) 10^3/uL Absolute Nucleated RBC x10^3/uL Nucleated RBC % /100WBC Sodium (135-145) mmol/L Potassium (3.5-5.0) mmol/L Chloride (101-111) mmol/L Carbon Dioxide (21-32) mmol/L Anion Gap (6-13) BUN (6-20) mg/dL Creatinine (0.4-1.0) mg/dL Estimated GFR (MDRD) (>89) Glucose (70-100) mg/dL Glycated Hemoglobin 8.2 H (4.6-6.2) % Estim Average Glucose 189 H (70-100) Calcium (8.5-10.3) mg/dL Magnesium 2.0 (1.7-2.8) mg/dL Total Bilirubin (0.2-1.0) mg/dL AST (10-42) IU/L ALT (10-60) IU/L Alkaline Phosphatase (42-121) IU/L Troponin I (<0.49) ng/mL B-Natriuretic Peptide (5-100) pg/mL Total Protein (6.7-8.2) g/dL Albumin (3.2-5.5) g/dL Globulin (2.1-4.2) g/dL Albumin/Globulin Ratio (1.0-2.2) TSH 0.62 (0.34-5.60) uIU/mL 05/28/18 05/28/18 05/28/18 Range/Units 14:33 14:33 14:33 WBC 10.2 (4.8-10.8) x10^3/uL RBC 3.43 L (4.20-5.40) 10^6/uL Hgb 11.0 L (12.0-16.0) g/dL Hct 32.6 L (37.0-47.0) % MCV 95.0 (81.0-99.0) fL MCH 32.1 H (27.0-31.0) pg MCHC 33.8 (32.0-36.0) g/dL RDW 13.9 (12.0-15.0) % Plt Count 225 (130-450) 10^3/uL MPV 8.2 (7.9-10.8) fL Neut # (Auto) 5.9 (1.5-6.6) 10^3/uL Lymph # (Auto) 3.0 (1.5-3.5) 10^3/uL [place] # (Auto) 1.0 (0.0-1.0) 10^3/uL Eos # (Auto) 0.2 (0.0-0.7) 10^3/uL Baso # (Auto) 0.1 (0.0-0.1) 10^3/uL Absolute Nucleated RBC 0.00 x10^3/uL Nucleated RBC % 0.0 /100WBC Sodium (135-145) mmol/L Potassium (3.5-5.0) mmol/L Chloride (101-111) mmol/L Carbon Dioxide (21-32) mmol/L Anion Gap (6-13) BUN (6-20) mg/dL Creatinine (0.4-1.0) mg/dL Estimated GFR (MDRD) (>89) Glucose (70-100) mg/dL Glycated Hemoglobin (4.6-6.2) % Estim Average Glucose (70-100) Calcium (8.5-10.3) mg/dL Magnesium (1.7-2.8) mg/dL Total Bilirubin (0.2-1.0) mg/dL AST (10-42) IU/L ALT (10-60) IU/L Alkaline Phosphatase (42-121) IU/L Troponin I < 0.04 (<0.49) ng/mL B-Natriuretic Peptide 52 (5-100) pg/mL Total Protein (6.7-8.2) g/dL Albumin (3.2-5.5) g/dL Globulin (2.1-4.2) g/dL Albumin/Globulin Ratio (1.0-2.2) TSH (0.34-5.60) uIU/mL - Current Medications Current Medications: Current Medications Generic Name Dose Route Start Last Admin Trade Name Freq PRN Reason Stop Dose Admin Acetaminophen 650 mg 05/26/18 14:56 05/29/18 09:23 Tylenol PO 650 mg Q4HR PRN Administration Pain 1 to 4 Hydrocodone Bitart/Acetaminophen 1 tab 05/27/18 14:47 05/29/18 09:24 Marquez 5/325 PO 1 tab Q4HR PRN Administration PAIN Buspirone HCl 30 mg 05/26/18 21:00 05/29/18 09:23 Buspar PO 30 mg BID RUSSELL Administration Estradiol 2 mg 05/27/18 09:00 05/29/18 09:25 Estrace PO 2 mg DAILY RUSSELL Administration Potassium Chloride/Sodium Chloride 1,000 mls @ 125 mls/hr 05/28/18 19:00 02:59 Normal Saline 0.9% W/20 Meq Kcl IV 125 mls/hr .Q8H RUSSELL Administration Ketorolac Tromethamine 15 mg 05/27/18 14:47 05/29/18 04:28 Toradol Inj (15mg) IVP 06/01/18 14:46 15 mg Q6H PRN Administration PAIN Morphine Sulfate 2 mg 05/27/18 17:34 05/29/18 07:39 Morphine (Carpuject) IVP 2 mg Q2H PRN Administration Pain 8 to 10 Ondansetron HCl 4 mg 05/26/18 14:56 05/29/18 09:20 Zofran Inj IVP 4 mg Q6HR PRN Administration Nausea / Vomiting Pantoprazole Sodium 20 mg 05/28/18 19:00 05/29/18 09:24 Protonix PO 20 mg BID RUSSELL Administration Patient Own Medication 1 each 05/27/18 09:00 05/29/18 09:26 Patient Own Controlled PO Not Given DAILY RUSSELL Topiramate [ 1 each 05/27/18 09:00 05/29/18 09:26 Topiramate Er] 200 PO Not Given Mg DAILY RUSSELL Potassium Chloride 20 meq 05/28/18 07:24 05/29/18 09:27 K-Dur PO Not Given DAILY RUSSELL Sertraline HCl 100 mg 05/28/18 09:00 05/29/18 09:25 Zoloft PO 100 mg DAILY RUSSELL Administration Sodium Chloride 10 ml 05/26/18 14:56 05/28/18 19:45 Normal Saline Flush 0.9% IVP 10 ml PRN PRN Administration NEEDED PER PROVIDER ORDERS Sodium Chloride 10 ml 05/26/18 17:00 05/29/18 07:57 Normal Saline Flush 0.9% IVP Not Given 0100,0900,1700 RUSSELL Sodium Chloride 10 ml 05/27/18 17:00 05/29/18 07:57 Normal Saline Flush 0.9% IVP Not Given 0100,0900,1700 RUSSELL Tizanidine HCl 4 mg 05/27/18 17:00 05/29/18 09:25 Zanaflex PO 4 mg Q8H RUSSELL Administration - Physical Exam Wound/Incisions: positive: Healing well. negative: No drainage, Erythema General Appearance: positive: No acute distress, Alert Abdomen: positive: Tenderness (appropriate incisional tenderness) Neurologic/Psychiatric: positive: Oriented x3 Impression/Plan - Problem List Problem List: Acute cholecystitis - s/p lap sky, wbc and T bili have normalized; hgb is stable at 10.5 and hypotension does not seem to be from postop fluid loss. Currently undergoing medical w/u. Will d/c once stable from a medical standpoint. Bradycardia with hypotension - hospitalist was consulted and pt is currently undergoing w/u. New DM - hospitalist is following. Diabetic education was ordered.
--- NOTE | 2018-05-29 11:08 | PROVIDER PROGRESS NOTE ---
Subjective - Prog Note Date Prog Note Date: 05/29/18 Prog Note Time: 11:06 - Subjective Pt reports feeling: Improved Subjective: Meg states that she has no complaints and is looking forward to returning home. She states that she will find a PCP to manage her new DM. Current Medications - Current Medications Current Medications: Buspirone HCl 30 mg PO BID 05/26/18 Cholestyramine/Aspartame [Cholestyramine Light Packet] 4 gm PO QID 05/26/18 Diclofenac Sodium 4 g TOP QID PRN 05/26/18 Estradiol 2 mg PO DAILY 05/26/18 Methylphenidate HCl [Concerta] 36 mg PO DAILY 05/26/18 Metoclopramide [Reglan] 10 mg PO Q6H PRN 05/26/18 Nortriptyline HCl 10 - 20 mg PO QPM PRN 05/26/18 Pantoprazole Sodium 40 mg PO DAILY 05/26/18 Potassium Chloride [K-Dur] 20 meq PO DAILY 05/26/18 SUMAtriptan succinate [Sumatriptan Succinate] 100 mg PO Q2H PRN MDD 200MG/24HRS 05/26/18 Sertraline [Zoloft] 100 mg PO DAILY 05/26/18 Topiramate [Topiramate ER] 200 mg PO DAILY 05/26/18 hydroCHLOROthiazide [Hydrochlorothiazide] 25 mg PO DAILY 05/26/18 tiZANidine [Zanaflex] 4 mg PO Q8H 05/26/18 Objective - Vital Signs/Intake & Output Reviewed Vital Signs: Yes Vital Signs: Vital Signs x48h Temp Pulse Resp BP Pulse Ox 05/29/18 07:55 36.7 C 52 L 16 125/75 98 05/29/18 04:45 36.7 C 53 L 16 111/70 95 Intake & Output: Intake & Output 05/26/18 05/27/18 05/28/18 05/29/18 23:59 23:59 23:59 23:59 Intake Total 200 4613.497 2186.667 Balance 200 4613.497 2186.667 - Objective General Appearance: positive: No acute distress, Alert Eyes Bilateral: positive: Normal inspection, PERRL ENT: positive: ENT inspection nml, Pharynx nml, No signs of dehydration Neck: positive: Nml inspection, Thyroid nml, No JVD, Trachea midline Respiratory: positive: Chest non-tender, No respiratory distress, Breath sounds nml Cardiovascular: positive: Regular rate & rhythm, No gallop, Systolic murmur Peripheral Pulses: 1+ Radial (R), 1+ Radial (L) Abdomen: positive: Nml bowel sounds, Tenderness, Other (rounded, soft, post- surgical sites with out s/s of infection.) Back: positive: Nml inspection Skin: positive: Color nml, No rash, Warm, Dry Extremities: positive: Non-tender, Full ROM, Nml appearance Neurologic/Psychiatric: positive: Oriented x3, CN's nml (2-12), Motor nml, Sensation nml, Depressed mood/affect Reflexes: Bicep (R): 3+, Bicep (L): 3+ - Lab Results Fish Bones: 05/29/18 05:40 05/29/18 05:40 Other Labs: Lab Results x24hrs 05/29/18 05/29/18 05/28/18 Range/Units 05:40 05:40 20:30 WBC 8.6 (4.8-10.8) x10^3/uL RBC 3.27 L (4.20-5.40) 10^6/uL Hgb 10.5 L (12.0-16.0) g/dL Hct 31.2 L (37.0-47.0) % MCV 95.5 (81.0-99.0) fL MCH 32.2 H (27.0-31.0) pg MCHC 33.7 (32.0-36.0) g/dL RDW 13.8 (12.0-15.0) % Plt Count 201 (130-450) 10^3/uL MPV 8.1 (7.9-10.8) fL Neut # (Auto) 4.4 (1.5-6.6) 10^3/uL Lymph # (Auto) 3.2 (1.5-3.5) 10^3/uL [place] # (Auto) 0.7 (0.0-1.0) 10^3/uL Eos # (Auto) 0.2 (0.0-0.7) 10^3/uL Baso # (Auto) 0.1 (0.0-0.1) 10^3/uL Absolute Nucleated RBC 0.01 x10^3/uL Nucleated RBC % 0.1 /100WBC Sodium 139 (135-145) mmol/L Potassium 3.8 (3.5-5.0) mmol/L Chloride 114 H (101-111) mmol/L Carbon Dioxide 21 (21-32) mmol/L Anion Gap 4.0 L (6-13) BUN 10 (6-20) mg/dL Creatinine 0.8 (0.4-1.0) mg/dL Estimated GFR (MDRD) 75 L (>89) Glucose 99 (70-100) mg/dL Glycated Hemoglobin (4.6-6.2) % Estim Average Glucose (70-100) Calcium 7.5 L (8.5-10.3) mg/dL Magnesium (1.7-2.8) mg/dL Total Bilirubin 0.5 (0.2-1.0) mg/dL AST 29 (10-42) IU/L ALT 36 (10-60) IU/L Alkaline Phosphatase 47 (42-121) IU/L Troponin I < 0.04 (<0.49) ng/mL B-Natriuretic Peptide (5-100) pg/mL Total Protein 5.3 L (6.7-8.2) g/dL Albumin 2.6 L (3.2-5.5) g/dL Globulin 2.7 (2.1-4.2) g/dL Albumin/Globulin Ratio 1.0 (1.0-2.2) TSH (0.34-5.60) uIU/mL 05/28/18 05/28/18 05/28/18 Range/Units 14:33 14:33 14:33 WBC (4.8-10.8) x10^3/uL RBC (4.20-5.40) 10^6/uL Hgb (12.0-16.0) g/dL Hct (37.0-47.0) % MCV (81.0-99.0) fL MCH (27.0-31.0) pg MCHC (32.0-36.0) g/dL RDW (12.0-15.0) % Plt Count (130-450) 10^3/uL MPV (7.9-10.8) fL Neut # (Auto) (1.5-6.6) 10^3/uL Lymph # (Auto) (1.5-3.5) 10^3/uL [place] # (Auto) (0.0-1.0) 10^3/uL Eos # (Auto) (0.0-0.7) 10^3/uL Baso # (Auto) (0.0-0.1) 10^3/uL Absolute Nucleated RBC x10^3/uL Nucleated RBC % /100WBC Sodium (135-145) mmol/L Potassium (3.5-5.0) mmol/L Chloride (101-111) mmol/L Carbon Dioxide (21-32) mmol/L Anion Gap (6-13) BUN (6-20) mg/dL Creatinine (0.4-1.0) mg/dL Estimated GFR (MDRD) (>89) Glucose (70-100) mg/dL Glycated Hemoglobin 8.2 H (4.6-6.2) % Estim Average Glucose 189 H (70-100) Calcium (8.5-10.3) mg/dL Magnesium 2.0 (1.7-2.8) mg/dL Total Bilirubin (0.2-1.0) mg/dL AST (10-42) IU/L ALT (10-60) IU/L Alkaline Phosphatase (42-121) IU/L Troponin I (<0.49) ng/mL B-Natriuretic Peptide (5-100) pg/mL Total Protein (6.7-8.2) g/dL Albumin (3.2-5.5) g/dL Globulin (2.1-4.2) g/dL Albumin/Globulin Ratio (1.0-2.2) TSH 0.62 (0.34-5.60) uIU/mL 05/28/18 05/28/18 05/28/18 Range/Units 14:33 14:33 14:33 WBC 10.2 (4.8-10.8) x10^3/uL RBC 3.43 L (4.20-5.40) 10^6/uL Hgb 11.0 L (12.0-16.0) g/dL Hct 32.6 L (37.0-47.0) % MCV 95.0 (81.0-99.0) fL MCH 32.1 H (27.0-31.0) pg MCHC 33.8 (32.0-36.0) g/dL RDW 13.9 (12.0-15.0) % Plt Count 225 (130-450) 10^3/uL MPV 8.2 (7.9-10.8) fL Neut # (Auto) 5.9 (1.5-6.6) 10^3/uL Lymph # (Auto) 3.0 (1.5-3.5) 10^3/uL [place] # (Auto) 1.0 (0.0-1.0) 10^3/uL Eos # (Auto) 0.2 (0.0-0.7) 10^3/uL Baso # (Auto) 0.1 (0.0-0.1) 10^3/uL Absolute Nucleated RBC 0.00 x10^3/uL Nucleated RBC % 0.0 /100WBC Sodium (135-145) mmol/L Potassium (3.5-5.0) mmol/L Chloride (101-111) mmol/L Carbon Dioxide (21-32) mmol/L Anion Gap (6-13) BUN (6-20) mg/dL Creatinine (0.4-1.0) mg/dL Estimated GFR (MDRD) (>89) Glucose (70-100) mg/dL Glycated Hemoglobin (4.6-6.2) % Estim Average Glucose (70-100) Calcium (8.5-10.3) mg/dL Magnesium (1.7-2.8) mg/dL Total Bilirubin (0.2-1.0) mg/dL AST (10-42) IU/L ALT (10-60) IU/L Alkaline Phosphatase (42-121) IU/L Troponin I < 0.04 (<0.49) ng/mL B-Natriuretic Peptide 52 (5-100) pg/mL Total Protein (6.7-8.2) g/dL Albumin (3.2-5.5) g/dL Globulin (2.1-4.2) g/dL Albumin/Globulin Ratio (1.0-2.2) TSH (0.34-5.60) uIU/mL ABX Reporting Has patient been on IV antibiotics over the past 48 hours?: No Assessment/Plan - Problem List (1) New onset type 2 diabetes mellitus Impression: The patient had an elevated hemoglobin A1C at 8.2%, and this is a new diagnosis. She has a strong family history of this including both parents and a sister. She states that she has been gaining weight in the past one year. A nutrition consult is pending for diabetes teaching. I suggest aspirin 81 mg PO daily. Plan: Defer treatment to PCP, and encourage exercise and diet modification as a first line treatment. (2) Bradycardia Impression: The patient was found to have ongoing bradycardia in the 40-60's with hypotension. Plan: Expect this to improve and monitor. (3) Hypotension Impression: The patient was found to be hypotensinve, but did not have symptoms. This is likely due to her overall fluid balance being low. Plan: Continue to monitor. (4) Cholecystitis Impression: The patient was admitted for this primary reason and is now status post surgical intervention for a cholecystecomy. Plan: Continue to monitor. (5) Status post laparotomy Impression: The patient is having an expected post-op course with the exception of her bradycardia with hypotension. She does not appear to be having any infection in regards to her surgical sites. Plan: Continue to monitor. (6) Chronic migraine Impression: The patient is prescribed propranolol, which is contraindicated while in the hospital as she has been bradycardic. Plan: continue to monitor vital signs and follow up with PCP. (7) History of diabetic gastroparesis Impression: The patient has a history of this and this most likely explains her bradycardia as her vagus nerve may be provoking this condition. Plan: Continue to monitor. (8) Hypertension Impression: The patient was prescribed HCTZ out patient, and this will be resumed for home use. She states that if she does not take this, she has BLE edema. 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 She was encouraged to purchase some [employer] hose. Plan: Continue medications if blood pressure is at least 100 systolic. Qualifiers: Hypertension type: essential hypertension Qualified Code(s): I10 - Essential (primary) hypertension
--- NOTE | 2018-05-29 11:34 | DISCHARGE SUMMARY ---
"Discharge Summary Admit Date: 05/26/18 Discharge Date: 05/29/18 Discharging Provider: Briseyda Weir MD Code Status: Attempt Resuscitation Condition at Discharge: Stable Discharge Disposition: 01 Home, Self Care - DIAGNOSES Admission Diagnoses: Acute Cholecystitis Discharge Diagnoses with Status of Each Condition: Acute cholecystitis - resolved New onset DM - stable Gastroparesis - stable Bardycardia with hypotension - stable - HPI History of Present Illness: 53y/o woman presents to the ED with c/o severe RUQ abdominal pain and nausea. She was found to have gallstones with an elevated wbc above 16 consistent with acute cholecystitis. She was admitted for IV antibiotics and lap sky. - CONSULTS | PROCEDURES Consultations: Hospitalist re: bradycardia with hypotension Procedures: Lap sky - HOSPITAL COURSE Hospital Course: She was taken to the OR 05/27 for lap sky which was uneventful. She was kept overnight postop for pain control. Overnight she developed bradycardia in the 50's with hypotension (SBP in the 80's). She was initially treated as blood loss/volume depletion with fluid bolus and increased IVF rate, but her hgb remained stable at 10.9 (currently 10.5 today) and the bradycardia was contrary to volume depletion. The hospitalist was consulted to evaluate and she was found to have newly diagnosed DM and a prior h/o gastroparesis. They feel that her bradycardia was due to vagal stimulation with her h/o gastroparesis. Her w/ u otherwise was negative. She is encouraged to exercise to avoid this recurring and was ok'd from their standpoint for discharge. - ALLERGIES Allergies/Adverse Reactions: Allergies Allergy/AdvReac Type Severity Reaction Status Date / Time ciprofloxacin [From Cipro] AdvReac Rash Verified 05/26/18 10:03 - MEDICATIONS Home Medications: Ambulatory Orders Medication Instructions Recorded Confirmed Buspirone HCl 30 mg PO BID 05/26/18 05/26/18 Cholestyramine/Aspartame 4 gm PO QID 05/26/18 05/26/18 [Cholestyramine Light Packet] Diclofenac Sodium 4 g TOP QID PRN 05/26/18 05/26/18 Estradiol [Estradiol] 2 mg PO DAILY 05/26/18 05/26/18 Methylphenidate HCl [Concerta] 36 mg PO DAILY 05/26/18 05/26/18 Metoclopramide [Reglan] 10 mg PO Q6H PRN 05/26/18 05/26/18 Nortriptyline HCl 10 - 20 mg PO QPM PRN 05/26/18 05/26/18 Pantoprazole Sodium 40 mg PO DAILY 05/26/18 05/26/18 Potassium Chloride [K-Dur] 20 meq PO DAILY 05/26/18 05/26/18 SUMAtriptan succinate [Sumatriptan 100 mg PO Q2H PRN MDD 200MG/24HRS 05/26/18 Succinate] Sertraline [Zoloft] 100 mg PO DAILY 05/26/18 05/26/18 Topiramate [Topiramate ER] 200 mg PO DAILY 05/26/18 05/26/18 hydroCHLOROthiazide 25 mg PO DAILY 05/26/18 05/26/18 [Hydrochlorothiazide] tiZANidine [Zanaflex] 4 mg PO Q8H 05/26/18 05/26/18 Home Medications Other | Comments: For pain control: [place] 5/325mg po q6hrs PRN alternated with Ibuprofen 600mg po q6hrs PRN. - PHYSICAL EXAM AT DISCHARGE General Appearance: positive: No acute distress, Alert Respiratory: positive: No respiratory distress, Breath sounds nml Cardiovascular: positive: Regular rate & rhythm Abdomen: positive: Other (soft; appropriate incisional tenderness; incisions c/d /i) - LABS Result Diagrams: 05/29/18 05:40 05/29/18 05:40 - FOLLOW UP Follow Up: f/u in the surgical clinic in 1-2wks - TIME SPENT Time Spent in Discharge (Minutes): 45"
--- NOTE | 2018-05-29 11:57 | Discharge Plan ---
Discharge Plan Disposition: 01 Home, Self Care Condition: Stable Prescriptions: HYDROcod/ACETAM 5/325 [Delta 5/325] 1 - 2 ea PO Q6H PRN #15 tablet PRN Reason: Pain Diet: Regular Activity Restrictions: no lifting greater than 10lbs; walking daily is encouraged Shower Restrictions: No (ok to shower, but no soaking in a tub/pool/waters/etc) Driving Restrictions: No (no driving after taking narcotic pain meds) Instruction Topics: Gallstones Additional Instructions or Follow Up instructions: f/u in surgery clinic in 7-10days. No Smoking: If you smoke, Please STOP! Call for help.
[2018-05-29] MEDS ORDERED: MORPHINE 2 MG/ML SYRINGE IVP PRN (13:31)
[2018-05-29 15:33] VITALS: BP 129/75
== END 2018-05-29 16:05 | disposition home or self-care (01) | DRG 419 ==
LOC: ED 09:45 → OBS 14:56 → OBSVTOIN 05-27 20:01 → MS2 05-27 21:23
PROVIDERS: ADMIT Surgery; ATTEND Surgery
PROC: 0FT44ZZ Resection of Gallbladder, Percutaneous Endoscopic Approach (ICD-10-PCS; principal; 2018-05-27 11:45)
DX: K80.00 Calculus of gallbladder with acute cholecystitis without obstruction (principal); K82.8 Other specified diseases of gallbladder; E11.43 Type 2 diabetes mellitus with diabetic autonomic (poly)neuropathy; K31.84 Gastroparesis; R00.1 Bradycardia, unspecified; I95.9 Hypotension, unspecified; G89.29 Other chronic pain; I10 Essential (primary) hypertension; F32.9 Major depressive disorder, single episode, unspecified; K21.9 Gastro-esophageal reflux disease without esophagitis; G43.709 Chronic migraine without aura, not intractable, without status migrainosus; R60.0 Localized edema; F43.10 Post-traumatic stress disorder, unspecified; Z79.899 Other long term (current) drug therapy; Z90.710 Acquired absence of both cervix and uterus; Z85.828 Personal history of other malignant neoplasm of skin; Z85.41 Personal history of malignant neoplasm of cervix uteri; Z87.11 Personal history of peptic ulcer disease; Z90.721 Acquired absence of ovaries, unilateral; Z83.3 Family history of diabetes mellitus
CPT/HCPCS: 47562; G0378; 36415; 76705; 80053; 81001; 81003; 83036; 83690; 83735; 83880; 84443; 84484; 84703; 85025; 85027; 87086; 88304; 93005; 93306; 96361; 96365; 96366; 96367; 96375; 96376; 99283; 99284